=== PATIENT | male | born 1960 | race Caucasian/White ===

== ENCOUNTER → 2025-03-07 10:18 | Outpatient (REF) | payer BC, SELFPAY | LOC: DHSLP 10:18 | PROVIDERS: ATTENDING PHYSICIAN Internal Medicine Critical Care Medicine; FAMILY PHYSICIAN Internal Medicine Critical Care Medicine | DX: G47.30 Sleep apnea, unspecified (principal); R06.83 Snoring | CPT/HCPCS: 95800 ==

== ENCOUNTER → 2025-03-26 12:52 | Outpatient (REF) | payer BC, SELFPAY | LOC: PAVMRI 12:52 | PROVIDERS: ATTENDING PHYSICIAN Specialist | DX: R51.9 Headache, unspecified (principal) | CPT/HCPCS: 70553; A9575 ==